=== PATIENT | male | born 1980 | race Hispanic/Latino ===

== ENCOUNTER 2020-05-06 21:18 | Emergency (ER) | payer SELFPAY ==
--- NOTE | 2020-05-06 22:12 | Event Note ---
ED Screening Note Date of service: 05/06/20 Time: 22:09 ED Screening Note: pt is a 39 y/o male with hx htn, MS, cholecystectomy Feb 2020, who presents for cp, x 2 days 08/07 pt not currently taking any medication, is a 20 pack year smoker, denies ETOH. This initial assessment/diagnostic orders/clinical plan/treatment(s) is/are subject to change based on patients health status, clinical progression and re- assessment by fellow clinical providers in the ED. Further treatment and workup at subsequent clinical providers discretion. Patient/guardian urged not to elope from the ED as their condition may be serious if not clinically assessed and managed. Initial orders include: cbc, cmp, lipase, cxr, ekg trop
--- NOTE | 2020-05-06 22:52 | XRay Report ---
XR chest routine 2V INDICATION / CLINICAL INFORMATION: chest pain COMPARISON: None available. FINDINGS: SUPPORT DEVICES: None. HEART / MEDIASTINUM: No significant abnormality. LUNGS / PLEURA: Lungs are clear. Costophrenic sulci are sharp. No pneumothorax. ADDITIONAL FINDINGS: No significant additional findings. IMPRESSION: 1. No acute findings. Signer Name: Chandana العلي MD Signed: 05/06/2020 10:48 PM Workstation Name: [id number]
[2020-05-06 22:57] LABS: Hematocrit 37.4 % (35.5-45.6); Hemoglobin 12.4 gm/dl (11.8-15.2); Mean Corpuscular HGB Conc 33 % (32-34); Mean Corpuscular Volume 92 fl (84-94); Platelet Count 401 K/mm3 (140-440); Red Blood Count 4.07 M/mm3 (3.65-5.03); Red Cell Distribution Width 14.5 % (13.2-15.2)
[2020-05-06 23:17] LABS: Alanine Aminotransferase 17 units/L (7-56); Albumin 4.1 g/dL (3.9-5); BUN/Creatinine Ratio 15; Blood Urea Nitrogen 16 mg/dL (9-20); Calcium 9.6 mg/dL (8.4-10.2); Hemolysis Index 8
[2020-05-06 23:51] LABS: Anisocytosis 1+; Platelet Estimate Consistent w Auto; Total Cells Counted 100
--- NOTE | 2020-05-07 00:16 | Emergency Department Report ---
<SALINA TAMAYO - Last Filed: 05/07/20 01:09> ED General Adult HPI - General Chief complaint: Chest Pain Stated complaint: CHEST PAIN PUI?: Yes Source: patient Mode of arrival: Stretcher Limitations: No Limitations - History of Present Illness Initial comments: pt is a 39 y/o w/m who presents for Chest Pain 07/07 intermediatre that radiates from luq to epigastric region, symptoms are exacerbated by nothing, symptoms are relieved by nothing tried. Pt denies sob, dzziness, or light headedness, pt denies hx of WA , he is an occasional smoker and denies etoh, - Related Data Previous Rx's Medication Instructions Recorded Last Taken Type Ibuprofen [Motrin 800 MG tab] 800 mg PO Q8HR PRN #30 tablet 05/07/20 Unknown Rx ED Review of Systems Constitutional: denies: chills, fever Eyes: denies: eye pain, eye discharge, vision change ENT: denies: throat pain, congestion Respiratory: denies: cough, shortness of breath, wheezing Cardiovascular: chest pain Endocrine: no symptoms reported Gastrointestinal: as per HPI, abdominal pain (epigastric). denies: nausea, vomiting Genitourinary: denies: urgency, dysuria Musculoskeletal: denies: back pain, joint swelling, arthralgia Skin: denies: rash, lesions Neurological: denies: headache, weakness, paresthesias Psychiatric: denies: anxiety, depression Hematological/Lymphatic: denies: easy bleeding, easy bruising ED Past Medical Hx - Past Medical History Previous Medical History?: Yes Hx Heart Attack/AMI: Yes Hx Kidney Stones: Yes - Surgical History Past Surgical History?: Yes Hx Coronary Stent: Yes - Social History Smoking Status: Current Every Day Smoker Substance Use Type: None - Medications Home Medications: Home Medications Medication Instructions Recorded Confirmed Last Taken Type Ibuprofen [Motrin 800 MG tab] 800 mg PO Q8HR PRN #30 tablet 05/07/20 Unknown Rx ED Physical Exam - General Limitations: No Limitations General appearance: alert, in no apparent distress - Head Head exam: Present: atraumatic, normocephalic - Eye Eye exam: Present: normal appearance, EOMI Pupils: Present: normal accommodation - ENT ENT exam: Present: mucous membranes moist - Neck Neck exam: Present: normal inspection - Respiratory Respiratory exam: Present: normal lung sounds bilaterally. Absent: respiratory distress, rales, stridor, chest wall tenderness - Cardiovascular Cardiovascular Exam: Present: regular rate, normal rhythm, normal heart sounds. Absent: systolic murmur, diastolic murmur, rubs, gallop - GI/Abdominal GI/Abdominal exam: Present: soft, normal bowel sounds. Absent: distended, tenderness, guarding, rebound, rigid, bruit, hernia - Rectal Rectal exam: Present: deferred - Extremities Exam Extremities exam: Present: normal inspection, full ROM, normal capillary refill. Absent: tenderness, pedal edema - Back Exam Back exam: Present: normal inspection, full ROM. Absent: tenderness, CVA tenderness (R), CVA tenderness (L), paraspinal tenderness, vertebral tenderness, rash noted - Neurological Exam Neurological exam: Present: alert, CN II-XII intact, normal gait, reflexes normal. Absent: motor sensory deficit - Psychiatric Psychiatric exam: Present: normal affect, normal mood - Skin Skin exam: Present: warm, dry, intact, normal color. 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 Diff Complete Total Counted 100 Seg Neuts % (Manual) 71.0 H Lymphocytes % (Manual) 22.0 Monocytes % (Manual) 5.0 Eosinophils % (Manual) 2.0 Nucleated RBC % Not Reportable Seg Neutrophils # Man 11.3 H Band Neutrophils # 0.0 Lymphocytes # (Manual) 3.5 Abs React Lymphs (Man) 0.0 Monocytes # (Manual) 0.8 Eosinophils # (Manual) 0.3 Basophils # (Manual) 0.0 Metamyelocytes # 0.0 Myelocytes # 0.0 Promyelocytes # 0.0 Blast Cells # 0.0 WBC Morphology Not Reportable Hypersegmented Neuts Not Reportable Hyposegmented Neuts Not Reportable Hypogranular Neuts Not Reportable Smudge Cells Not Reportable Toxic Granulation Not Reportable Toxic Vacuolation Not Reportable Dohle Bodies Not Reportable Pelger-Huet Anomaly Not Reportable [place] Rods Not Reportable Platelet Estimate Consistent w auto Clumped Platelets Not Reportable Plt Clumps, EDTA Not Reportable Large Platelets Not Reportable Giant Platelets Not Reportable Platelet Satelliting Not Reportable Plt Morphology Comment Not Reportable RBC Morphology Not Reportable Dimorphic RBCs Not Reportable Polychromasia Not Reportable Hypochromasia Not Reportable Poikilocytosis Not Reportable Anisocytosis 1+ Microcytosis Not Reportable Macrocytosis Not Reportable Spherocytes Not Reportable Pappenheimer Bodies Not Reportable Sickle Cells Not Reportable Target Cells Not Reportable Tear Drop Cells Not Reportable Ovalocytes Not Reportable Helmet Cells Not Reportable Pritchard-Homeworth Bodies Not Reportable [place] Rings Not Reportable [place] Cells Not Reportable Bite Cells Not Reportable Crenated Cell Not Reportable Elliptocytes Not Reportable Acanthocytes (Spur) Not Reportable Rouleaux Not Reportable Hemoglobin C Crystals Not Reportable Schistocytes Not Reportable Malaria parasites Not Reportable Hu Bodies Not Reportable Hem Pathologist Commnt No Sodium 144 Potassium 4.2 Chloride 107.3 H Carbon Dioxide 25 Anion Gap 16 BUN 16 Creatinine 1.1 Estimated GFR > 60 BUN/Creatinine Ratio 15 Glucose 96 Calcium 9.6 Total Bilirubin 0.30 AST 16 ALT 17 Alkaline Phosphatase 86 Troponin T < 0.010 Total Protein 6.9 Albumin 4.1 Albumin/Globulin Ratio 1.5 - EKG Data EKG shows normal: sinus rhythm Rate: normal - EKG Data When compared to previous EKG there are: previous EKG unavailable Interpretation: normal EKG normal sinus rhythm no ST Elevated WA, EKG interp by ed attending. 05/07/20 00:24 - Radiology Data Radiology results: report reviewed, image reviewed interpreted by me: normal cxr no opacites , no infiltrates. normal sinus rhythm no ST Elevated WA, EKG interp by ed attending. - Medical Decision Making pt is a 39 y/o male with hx htn, [place], cholecystectomy Feb 2020, who presents for cp, x 2 days 08/07 pt not currently taking any medication, is a 20 pack year smoker, denies ETOH. pain is improved at this time. Heart score is i for subjective hx, pt is currently a/o x 3, tolerating po intake, denies cp, no sob, no dizziness or lightheadedness, no n/v. plan: dc to home dx: Chest Pain , follow up with pcp in 2-3 days, . ED Disposition Clinical Impression: Chest pain Qualifiers: Chest pain type: unspecified Qualified Code(s): R07.9 - Chest pain, unspecified Disposition: TO HOME OR SELFCARE Is pt being admited?: No Does the pt Need Aspirin: No Condition: Stable Instructions: Nonspecific Chest Pain, Adult, Chest Pain (ED) Prescriptions: Ibuprofen [Motrin 800 MG tab] 800 mg PO Q8HR PRN #30 tablet PRN Reason: pain Referrals: ERMA MCGINNIS MD [Staff Physician] - 3-5 Days Forms: Work/School Release Form(ED) Time of Disposition: 01:10 <PRETTY SHERIDAN III - Last Filed: 05/07/20 01:36> ED General Adult HPI - General Source: patient ED Review of Systems ROS: Stated complaint: CHEST PAIN Other details as noted in HPI ED Course Vital Signs 05/06/20 21:38 Temperature 98.5 F Pulse Rate 95 H Respiratory 16 Rate Blood Pressure 130/96 O2 Sat by Pulse 98 Oximetry - Reevaluation(s) Reevaluation #1: I reviewed the findings and management of this patient in real-time and I have personally seen and examined this patient and participated in the decision making for this patient with the midlevel. Patient is a 39-year-old male that presents emergency room with chest pain since February 2020. Patient states the chest pain is better with rest and worse with palpation and movement. Patient states he has had a stent and an WA in the past. Patient has been seen in another ER and had a full cardiac work-up and was discharged home in March. Patient states the quality and the consistency of his chest pain is unchanged from February. Patient had labs done which were essentially unremarkable. Ben kevin had a chest x-ray which was negative for acute finding. Patient is EKG is negative and does not show any acute changes or STEMI. I examined the patient. Patient's lung sounds are clear. Patient's CV exam reveals a normal S1 and S2 and no murmurs. Patient's abdominal exam is negative. Patient is alert and oriented x3. Patient has a normal mood and affect. Patient is medically clear. I discussed all results and clinical findings with patient. I discussed plan of care with patient. Patient agrees with plan of care. Patient is stable for discharge. Patient will be discharged home. Patient given discharge instructions. Patient voiced understanding of discharge instructions. 05/06/20 23:33 ED Medical Decision Making - Lab Data Result diagrams: 05/06/20 22:21 05/06/20 22:21 Critical care attestation.: If time is entered above; I have spent that time in minutes in the direct care of this critically ill patient, excluding procedure time. ED Disposition Is pt being admited?: No Does the pt Need Aspirin: No
[2020-05-07 05:51] VITALS: BP 131/82
== END 2020-05-07 05:51 | disposition home or self-care (01) ==
LOC: ED 21:18
DX: R07.89 Other chest pain (principal); I25.2 Old myocardial infarction; N20.0 Calculus of kidney; F17.200 Nicotine dependence, unspecified, uncomplicated; Z79.899 Other long term (current) drug therapy
CPT/HCPCS: 36415; 71046; 80053; 83690; 84484; 85007; 85025; 93005